=== PATIENT | male | born 1955 | race Caucasian/White ===

== ENCOUNTER 2017-05-02 08:34 | Day surgery (SDC) | payer OTHER ==
[~2017-05-02 08:34] MED LIST: CIPROFLOXACIN500 M2 PO; METRONIDAZOLE500 M2 PO; PREDNISONE 20MG20 MG PO
--- NOTE | 2017-05-02 10:30 | Operative Note ---
Endoscopy Report Date: 05/02/17 Preoperative diagnosis: Lower abdominal pain, diverticulitis Procedure Type of procedure: Total colonoscopy with snare polypectomy and biopsies Indications: Patient is a 61-year-old white male. Patient had been admitted to the hospital in early February with a history of approximately a 2 week history of LEFT lower quadrant abdominal pain. He had a CT scan as an outpatient at an outside facility which revealed findings of significant diverticulitis and therefore the patient was admitted for inpatient management. He was hospitalized 03/10/17 through 03/14/17. He improved dramatically with several days of intravenous antibiotics and ultimately was discharged home on oral antibiotics. I saw him in the office several days after discharge. He had some suprapubic pressure but no significant pain. I ordered an outpatient CT scan with contrast which was done on 04/07/17. This reveals some persistent inflammatory changes around the sigmoid colon consistent with diverticulitis. There was concern with the ongoing findings on CT scan. Plan was made to proceed with colonoscopy several weeks later to evaluate the diverticular disease and rule out neoplasm. The morning of the procedure the patient stated that over the past 10 days he had been having some increasing lower abdominal discomfort but he felt this may be related to diet. Consent was obtained and patient was taken to same-day surgery procedure room. He was positioned in a lateral decubitus position. Adequate intravenous sedation was achieved. Variable stiffness Olympus colonoscope was inserted via the anus. It was advanced to the cecum without significant difficulty. Colonic preparation was good. Ileocecal valve and appendiceal orifice were clearly identified. Colonoscope was withdrawn through the colon. Near the hepatic flexure there was an adenomatous-appearing polyp which was removed with hot snare. Colonoscope was withdrawn the remaining colon. He had moderate sigmoid diverticulosis. There is some minor patchy erythema consistent with minor resolving inflammation. A couple of biopsies were obtained. The rectosigmoid region there was a diminutive polyp removed with cold snare. Retroflexion within the rectum revealed minor internal hemorrhoids. Colonoscope was withdrawn. Findings 1. Diverticulosis 2. Diverticulitis 3. Polyp Follow-Up Follow-Up: Given the polyps likely plan for repeat colonoscopy within 5 years. It appears as though the diverticulitis that shown significant improvement and there was minimal inflammation. This may be self-limited. However, if he continues to have symptoms may follow-up with a repeat CT scan to evaluate for residual abscess. However, this is very unlikely. at [id number]
[2017-05-02 11:14] VITALS: BP 163/92
== END 2017-05-02 11:00 | disposition home or self-care (01) ==
LOC: SDC 08:34
PROVIDERS: Surgery
PROC: 0DBL8ZX Excision of Transverse Colon, Via Natural or Artificial Opening Endoscopic, Diagnostic (ICD-10-PCS; 2017-05-02)
PROC: 0DBE8ZX Excision of Large Intestine, Via Natural or Artificial Opening Endoscopic, Diagnostic (ICD-10-PCS; 2017-05-02)
PROC: 0DBN8ZX Excision of Sigmoid Colon, Via Natural or Artificial Opening Endoscopic, Diagnostic (ICD-10-PCS; principal; 2017-05-02 09:00)
DX: K57.30 Diverticulosis of large intestine without perforation or abscess without bleeding (principal); R10.30 Lower abdominal pain, unspecified; K63.5 Polyp of colon

== ENCOUNTER → 2017-06-12 | Outpatient (CLI) | payer OTHER ==
[2017-06-12 10:42] LABS: BUN 8 mg/dL (7-18)
[2017-06-12 10:43] LABS: GFR (ESTIMATED) 86 ML/MIN (>60)
[2017-06-12 11:33] LABS: LYMPH # 2.5 K/mm3 (0.7-4.5); LYMPH % 31.2 % (10-50)
[2017-06-12 12:28] LABS: HEMOGLOBIN 15.1 g/dL (14.1-18.0)
--- NOTE | 2017-06-12 14:33 | RADIOLOGY REPORT PS360 ---
CT ABD PELVIS W/ CONTRAST CLINICAL INDICATION: ABD PAIN WITH REFRACTORY DIVERTICULITIS ORDERING PHYSICIAN: Hudson Craroll MD PATIENT AGE: 62 years COMPARISON: 04/07/2017 TECHNIQUE: Axial images obtained with sagittal and coronal reformats. PROCEDURE: Oral Contrast: Redicat IV Contrast: 75 mL is Isovue-370 . FINDINGS: The lung bases are clear. The liver, gallbladder, spleen, adrenal glands, and pancreas are unremarkable. No obstructing renal or ureteral calculi. There remains thickening of the sigmoid colon with extensive diverticulosis and stranding of the pericolic fat. There is a focal irregular area of increased soft tissue density in the mid aspect of the pelvis which is superior to the thickened sigmoid colon with contiguous extension to the region of the sigmoid colon. This area measures approximately 3.6 cm and contains some foci of gas. Previously this region measured 5.3 cm. The appendix remains thickened and is to the right of this inflammatory mass with the tip of the appendix extending and involved by the inflammatory mass. There is a loop of small bowel also adjacent to the inflammatory mass along the left and inferior aspect of the inflammatory region. The lesion is somewhat smaller and somewhat more dense. No evidence of intestinal obstruction. No free fluid in the pelvis. IMPRESSION: Persistent phlegmonous changes in the mid pelvic region slightly to the left as described above superior to the thickened sigmoid colon, medial to the thickened appendix involving the tip of the appendix, and medial to a thickened small bowel loop in the left lower quadrant. This may represents sequela from diverticulitis. The sigmoid colon remains thickened with mild stranding of the pericolic fat. The phlegmonous changes are slightly smaller but persists containing a minimal amount of gas. No drainable fluid collection apparent.
== END ==
LOC: LAB 10:19
PROVIDERS: Surgery
DX: R10.9 Unspecified abdominal pain (principal); K57.32 Diverticulitis of large intestine without perforation or abscess without bleeding
CPT/HCPCS: Q9967

== ENCOUNTER → 2017-07-17 | Outpatient (CLI) | payer OTHER ==
[2017-07-17 08:46] LABS: BUN 12 mg/dL (7-18)
[2017-07-17 08:47] LABS: GFR (ESTIMATED) 86 ML/MIN (>60)
--- NOTE | 2017-07-18 07:39 | RADIOLOGY REPORT PS360 ---
CT ABD PELVIS W/ CONTRAST Ordering Physician: Hudson Carroll MD Patient Age: 62 years: Male HISTORY: DIVERTICULITISabdominal pain left lower quadrant TECHNIQUE: Helical CT scanning through abdomen and pelvis following 75 cc Isovue-370 COMPARISON :June 12, 2017 CT abdomen also April 08, 2017.. Heart normal size. FINDINGS - Lung bases. Nothing definitely acute Abdomen : Liver, spleen, pancreas, adrenals, kidneys unremarkable. Gallbladder. Focal area of density & thickening at fundus of gallbladder again noted similar to March study. Noted previously. Question focal area of inflammation or wall thickening versus polyp. Consider gallbladder ultrasound to further evaluate ( axial image 32 coronal 27 ) Again see the abnormalities in the adjacent to sigmoid colon. With extensive diverticulosis is most evident sigmoid colon. Previous phlegmon has scarred down is overall smaller but persistent area of resolving inflammation and scarring. Located just superior to the sigmoid colon.. There is scarring and retraction throughout this area, best seen coronal images 36-39. Axial images 74-75. Would note the tip of the appendix leads to this area and incorporated with evident. There is of tip of appendix into this region. . There is diffuse wall thickening at the adjacent sigmoid colon but this appears improved and the inflammation in this region appears improved. Less pericolic stranding and inflammation today.. . There is mild wall thickening and some adjacent small bowel loops into this region but small bowel is normal in caliber with no dilatation or obstruction. Oral contrast was given is noted to the majority the small bowel into the right colon. There are some liquid stool at the right and transverse colon with this semisolid stool. Diverticulosis at the descending colon also noted but again most pronounced diverticular disease at sigmoid. Normal size prostate with central calcification. Bladder upper normal wall thickness. IMPRESSION: 1. the area of previous inflammation and phlegmon has shown further regression & retraction,. Definite overall improvement with less inflammatory changes here and throughout the sigmoid region.. This smaller residual focus of scarring& inflammation, is just superior to the extensive diverticulosis at sigmoid colon and most likely originated from this diverticulosis, but would also note that the tip the appendix is now incorporated into postinflammatory scarring at this area... Images reviewed with Dr. Carroll in radiology. The diffuse wall thickening and inflammation at sigmoid colon again noted but has shown slight improvement as well. 2., Fundus of gallbladder thickening of minimal density at the fundus of gallbladder again noted.
== END ==
LOC: RAD 08:25
PROVIDERS: Surgery
DX: K57.92 Diverticulitis of intestine, part unspecified, without perforation or abscess without bleeding (principal)
CPT/HCPCS: Q9967